=== PATIENT | female | born 1990 | race Caucasian/White ===

== ENCOUNTER 2021-01-14 08:33 | Day surgery (SDC) | payer BC ==
[2021-01-14] MEDS: OXYMETAZOLINE HCL 0.05% 15ML NAS ONE ×4 (08:50→10:27)
[2021-01-14] MEDS ORDERED: Ringers Lactate 1,000 ML IV ONE (09:07)
[2021-01-14] MEDS ORDERED: OXYMETAZOLINE HCL 0.05% 15ML NAS ONE ×2 (09:07→09:43)
[2021-01-14] MEDS ORDERED: CEFAZOLIN/SWI 1gm 1 GM/10 ML SYR ONE ×2 (09:08→09:34)
[2021-01-14] MEDS ORDERED: NA CHLORIDE 0.9% 500 ML ONE (09:43)
[2021-01-14] MEDS ORDERED: EPINEPHRINE/PF 1 MG/ML AMP ONE (09:44)
[2021-01-14] MEDS ORDERED: LIDOCAINE 1% W/EPI 1:100,000 10 ML VIAL ONE (09:44)
[2021-01-14] MEDS ORDERED: FENTANYL CITR 100 MCG/2 ML ONE ×2 (10:08→11:39)
[2021-01-14] MEDS ORDERED: propofoL 200 MG/20 ML VIAL IV ONE ×2 (10:08→10:10)
[2021-01-14] MEDS ORDERED: ONDANSETRON 4 MG/2 ML VIAL ONE ×3 (10:08→14:04)
[2021-01-14] MEDS ORDERED: MIDAZOLAM HCL 2 MG/2 ML INJ ONE (10:08)
[2021-01-14] MEDS ORDERED: LIDOCAINE 2% MPF 5 ML VIAL ONE (10:08)
[2021-01-14] MEDS ORDERED: ROCURONIUM 50 MG/5 ML VIAL IV ONE (10:08)
[2021-01-14] MEDS ORDERED: dexAMETHasone 10 MG/ML VIAL ONE (10:08)
[2021-01-14] MEDS: HYDROMORPHONE HCL 1 MG/ML INJ ONE ×2 (11:58→12:08)
[2021-01-14 12:16] VITALS: O2SAT 100
[2021-01-14] MEDS ORDERED: TRAMADOL HCL 50 MG TAB ONE (13:32)
[2021-01-14 14:42] VITALS: BP 124/74; TEMP 97.3
--- NOTE | 2021-01-21 11:30 | OP ---
Date of Procedure: 01/14/2021 Surgeon: Noris Rizzo MD Preoperative Diagnoses: Septal deviation, inferior turbinate hypertrophy, nasal obstruction. Postoperative Diagnoses: Septal deviation, inferior turbinate hypertrophy, nasal obstruction. Procedures Performed: Septoplasty and submucous resection of bilateral inferior turbinates. Indication For Procedure: Smitha was previously evaluated for complaints of nasal obstruction. Hunter cormier used nasal steroid sprays on a daily basis for several weeks with no improvement. After considerin g the risks and benefits, she elected to proceed with surgery. Description Of Procedure In Detail: The patient was brought to the operating room. She was placed u nder general anesthesia via oral endotracheal tube. The nasal cavity was treated with Afrin-soaked p ledgets and the septum was injected with 1% lidocaine with epinephrine. A total of 4.5 mL were used. The headlight and nasal speculum were used to examine the nasal cavity. The patient was noted to h ave prominent maxillary ridge on both sides with a bony posterior superior deviation of the septum an d mild to moderate right cartilaginous deviation. A right-sided hemitransfixion incision was made th rough the nasal mucosa and a José elevator was used to elevate submucosal flaps bilaterally. The p osterior aspect of the cartilaginous septum was incised and removed. [place] rongeurs were then used to remove small portions of the deviated bony septum in a piece-chavez fashion. The [place] rongeurs we re also used to carefully and conservatively remove excessive portions of the maxillary crest on the right and left side. A rasp was used to smooth the bony edges in these areas. These procedures resu lted in improvement in the overall appearance of the septum. Afrin-soaked pledgets were placed betwe en the mucosal flaps for several minutes to aid in hemostasis. After removal of the pledgets, the he mitransfixion incision was closed in a running fashion using fast-absorbing gut sutures. The mucosal flaps were then approximated using a quilting suture with a 4-0 plain gut on a Danilo needle. Attent ion was then turned to the inferior turbinates. A small stab incision was made in the head of the ri ght and left middle turbinate. A José elevator was used to create a submucosal pocket. The microd ebrider fitted with an inferior turbinate blade was used to remove excessive soft tissue from the inf erior turbinates, improving the nasal airway. The [place] elevator was then used to down fracture th e right and left inferior turbinate. Afrin-soaked packing was placed in the nose to aid in control o f hemostasis. The Siler was then used to medialize the middle turbinate to improve airflow through t his portion of the nose. After suctioning and confirmation of pledget counts following removal of th e pledgets, a Parmar airway splint was placed in the right and left nasal cavity and secured using a 4 -0 nylon suture. The nasopharynx and oropharynx were suctioned using a Yankauer and reinspected torrey ral minutes later to ensure no significant bleeding from the nasal cavity was found. The patient was then returned to care of Anesthesia for awakening and extubation in the operating room, which procee ded without difficulty. Disposition: The patient was transported to the recovery room in stable condition and will be discha rged home later today in the care of her family and follow up with Dr. Rizzo in 10 days for removal of the nasal splints. Appropriate nasal precautions were discussed with the patient. HUNTER/MELISSA Voice ID: [id number] Report ID: [id number]
== END 2021-01-14 14:00 | disposition home or self-care (01) ==
LOC: OR 08:33
PROVIDERS: ATTEND Otolaryngology
PROC: 09SM0ZZ Reposition Nasal Septum, Open Approach (ICD-10-PCS; principal; 2021-01-14 10:00)
DX: J34.2 Deviated nasal septum (principal); J34.89 Other specified disorders of nose and nasal sinuses; Z20.822 Contact with and (suspected) exposure to COVID-19
CPT/HCPCS: 30520; 30140; 81025; 88300; U0003; J2704 ×2; J2250; J3010 ×2; J1100; J1170; J0690 ×2; J7120; J7040; J2405 ×3; J0171